=== PATIENT | female | born 1990 | race African-American/Black ===

== ENCOUNTER 2018-06-17 05:52 | Emergency (ER) | payer SELFPAY ==
[~2018-06-17] VITALS: Ht 162.6 cm; Wt 79.4 kg
--- NOTE | 2018-06-17 06:34 | PHYS DOC ---
Past History Past Medical History: No Pertinent History Past Surgical History: No Surgical History Smoking: Cigarettes Alcohol Use: Occasionally Drug Use: Methamphetamine Adult General Chief Complaint Chief Complaint: COLD EXPOSURE HPI HPI Patient is a 27 year old female who brought in by EMS because of cold exposure. Patient states she left a local bar around midnight and while walking home, fell in a [place] and called police. Patient fell asleep while tried to take off her shoes and finally police found her prior to arrival to ER. Patient complaining of pain in right hip and bilateral heel that his force in left side and rated her pain 10 over 10. Patient denies head injury and other pain. EMS reported that she had temperature of 94 initially with blood sugar of 59 but she had temperature of 97 and blood sugar of 89 at arrival to ER. Review of Systems Review of Systems Constitutional: Denies fever or chills [] Eyes: Denies change in visual acuity, redness, or eye pain [] HENT: Denies nasal congestion or sore throat [] Respiratory: Denies cough or shortness of breath [] Cardiovascular: No additional information not addressed in HPI [] GI: Denies abdominal pain, nausea, vomiting, bloody stools or diarrhea [] : Denies dysuria or hematuria [] Musculoskeletal: Denies back pain, reports joint pain [] Integument: Denies rash or skin lesions [] Neurologic: Denies headache, focal weakness or sensory changes [] Endocrine: Denies polyuria or polydipsia [] All other systems were reviewed and found to be within normal limits, except as documented in this note. Current Medications Current Medications Current Medications Medications (Trade) Dose Ordered Sig/[facility] Start Time Stop Time Status Last Admin Dose Admin Ketorolac Tromethamine (Toradol Im) 60 mg 1X ONCE 06/17/18 06:30 06/17/18 06:31 UNV Physical Exam Physical Exam Constitutional: Well developed, well nourished, mild distress, non-toxic appearance. [] HENT: Normocephalic, atraumatic, bilateral external ears normal, oropharynx moist, no oral exudates, nose normal. [] Eyes: PERRLA, EOMI, conjunctiva normal, no discharge. [] Neck: Normal range of motion, no tenderness, supple, no stridor. [] Cardiovascular:Heart rate regular rhythm, no murmur [] Lungs & Thorax: Bilateral breath sounds clear to auscultation [] Abdomen: Bowel sounds normal, soft, no tenderness, no masses, no pulsatile masses. [] Skin: Warm, dry, no erythema, no rash. [] Back: No tenderness, no CVA tenderness. [] Extremities: No deformity, right hip with painful range of motion, bilateral feet without deformity or edema or contusion, no cyanosis, no clubbing, no edema. [] Neurologic: Alert and oriented X 3, normal motor function, normal sensory function, no focal deficits noted. [] Psychologic: Affect normal, judgement normal, mood normal. [] Current Patient Data Vital Signs Vital Signs Date Time Temp Pulse Resp B/P (MAP) Pulse Ox O2 Delivery O2 Flow Rate FiO2 06/17/18 05:54 97.6 88 18 99 Room Air EKG EKG [] Radiology/Procedures Radiology/Procedures [][place] [address] IMAGING REPORT Signed PATIENT: NIGEL HO ACCOUNT: [id number] : 1990 LOCATION: ER AGE: 27 SEX: F EXAM STATUS: REG ER ORD. PHYSICIAN: GARRY ODONNELL MD REASON: injury PROCEDURE: FOOT BILAT 3V Bilateral feet, 6 views, 06/17/2018: HISTORY: Fall, pain No fracture or dislocation is identified. IMPRESSION: No acute bony abnormality is detected. Electronically signed by: Pastor Dyson MD (06/17/2018 7:45 AM) [facility] DICTATED AND SIGNED BY: PASTOR DYSON MD DATE: 06/17/18 0745 CC: GARRY ODONNELL MD; PCP,NO ~ [address] [address] IMAGING REPORT Signed PATIENT: NIGEL HO ACCOUNT: [id number] : 1990 LOCATION: ER AGE: 27 SEX: F EXAM STATUS: REG ER ORD. PHYSICIAN: GARRY ODONNELL MD REASON: injury PROCEDURE: HIP RIGHT 2V WITH PELVIS Pelvis with right hip, 3 views, 06/17/2018: HISTORY: Fall, pain No fracture or dislocation is identified. The hip joint spaces are well-maintained. A small radiopacity projected over the left femoral neck may be a bone island or overlying soft tissue calcification. IMPRESSION: No acute bony abnormality is detected. Electronically signed by: Pastor Dyson MD (06/17/2018 7:43 AM) [facility] DICTATED AND SIGNED BY: PASTOR DYSON MD DATE: 06/17/18 0743 CC: GARRY ODONNELL MD; PCP,NO ~ Course & Med Decision Making Course & Med Decision Making Pertinent Labs and Imaging studies reviewed. (See chart for details) Evaluation of patient in ER showed 27-year-old female patient who became drunk and was outside between midnight and 5 AM. Patient had normal temperature at arrival to ER. Patient had pain in her hip and feet with unremarkable x-ray. Patient tolerated oral intake and ambulated without problem. Dragon Disclaimer Dragon Disclaimer This electronic medical record was generated, in whole or in part, using a voice recognition dictation system. Departure Departure: Impression: Primary Impression: Cold exposure Additional Impressions: Alcohol abuse Foot pain, bilateral Injury of right hip Tobacco abuse Tobacco abuse counseling Disposition: HOME, SELF-CARE (at 0900) Condition: IMPROVED Patient Instructions: Alcohol Intoxication, Foot Contusion, Hip Injury Additional Instructions: Drink plenty of liquids Follow-up with your primary care physician in 3-5 days Return to ER if not getting better Apply ice on the affected area Scripts Naproxen (NAPROSYN) 500 Mg Tablet 500 MG PO BID for pain, #20 TAB Prov: GARRY ODONNELL MD 06/17/18 Problem Qualifiers Primary Impression: Cold exposure Encounter type: initial encounter Qualified Codes: T69.9XXA - Effect of reduced temperature, unspecified, initial encounter Additional Impressions: Injury of right hip Encounter type: subsequent encounter Qualified Codes: S79.911D - Unspecified injury of right hip, subsequent encounter GARRY ODONNELL MD Jun 17, 2018 06:34
[2018-06-17] MEDS ORDERED: KETOROLAC 60 MG/2 ML VIAL. IM ONE (06:45)
--- NOTE | 2018-06-17 07:46 | RAD ---
Pelvis with right hip, 3 views, 06/17/2018: HISTORY: Fall, pain No fracture or dislocation is identified. The hip joint spaces are well-maintained. A small radiopacity projected over the left femoral neck may be a bone island or overlying soft tissue calcification. IMPRESSION: No acute bony abnormality is detected. Electronically signed by: Pastor Dyson MD (06/17/2018 7:43 AM) [facility]
--- NOTE | 2018-06-17 07:47 | RAD ---
Bilateral feet, 6 views, 06/17/2018: HISTORY: Fall, pain No fracture or dislocation is identified. IMPRESSION: No acute bony abnormality is detected. Electronically signed by: Pastor Dyson MD (06/17/2018 7:45 AM) [facility]
[2018-06-17 08:21] LABS: BASO # 0.1 x10^3/uL (0.0-0.2); BASO % 1 % (0-3); EOS # 0.1 x10^3/uL (0.0-0.7); EOS % 0 % (0-3); HEMATOCRIT 45.5 % (36.0-47.0); HEMOGLOBIN 15.5 g/dL (12.0-15.5); LYMPH # 2.5 x10^3/uL (1.0-4.8); LYMPH % 20 % (24-48); MEAN CORPUSCULAR HEMOGLOBIN 31 pg (25-35); MEAN CORPUSCULAR HGB CONC 34 g/dL (31-37); MEAN CORPUSCULAR VOLUME 91 fL (79-100); MONO # 0.7 x10^3/uL (0.0-1.1); MONO % 6 % (0-9); NEUT % 73 % (31-73); PLATELET COUNT 386 x10^3/uL (140-400); RED BLOOD COUNT 5.01 x10^6/uL (3.50-5.40); WHITE BLOOD COUNT 12.3 x10^3/uL (4.0-11.0)
[2018-06-17 08:31] LABS: ALBUMIN 4.1 g/dL (3.4-5.0); ALBUMIN/GLOBULIN RATIO 1.1 (1.0-1.7); CALCIUM 8.9 mg/dL (8.5-10.1); CREATININE 0.8 mg/dL (0.6-1.0); GFR 105.8; POTASSIUM 3.6 mmol/L (3.5-5.1); TOTAL BILIRUBIN 1.1 mg/dL (0.2-1.0); TOTAL PROTEIN 7.7 g/dL (6.4-8.2)
[2018-06-17] MEDS ORDERED: NAPR-683 PO (09:02)
[2018-06-17 09:36] VITALS: BP 149/97
== END 2018-06-17 09:36 | disposition home or self-care (01) ==
LOC: ER 05:52
DX: T69.8XXA Other specified effects of reduced temperature, initial encounter (principal); S79.911A Unspecified injury of right hip, initial encounter; M79.672 Pain in left foot; M79.671 Pain in right foot; F17.210 Nicotine dependence, cigarettes, uncomplicated; Z71.6 Tobacco abuse counseling; W18.39XA Other fall on same level, initial encounter; Y93.01 Activity, walking, marching and hiking; Y92.89 Other specified places as the place of occurrence of the external cause; Y99.8 Other external cause status
CPT/HCPCS: 36415; 73502; 73630; 80053; 82947; 85025; 96372; 99284; G0480; J1885